=== PATIENT | female | born 1980 | race Caucasian/White ===

== ENCOUNTER 2021-01-28 16:26 | Emergency (ER) | payer OTHER ==
[~2021-01-28 16:26] MED LIST: AUGMENTIN 875-1 EACH PO; CIPRO500 MG PO; CLINDAMYCIN HC300 MG PO; IBUPROFEN600 MG PO; KEFLEX CAP 500500 MG PO
[2021-01-28 17:31] LABS: HEMOGLOBIN 10.9 gm/dl (12.3-15.3); RED BLOOD COUNT 4.02 M/UL (4.00-5.10); WHITE BLOOD COUNT 7.9 K/UL (4.5-11.0)
[2021-01-28 17:41] LABS: BUN/CREATININE RATIO 9 (0-10)
[2021-01-28] MEDS ORDERED: PROVERA 10 MG T10 MG PO (18:15)
== END 2021-01-28 18:35 | disposition home or self-care (01) ==
LOC: ER1 16:26
PROVIDERS: Nurse Practitioner
DX: N92.0 Excessive and frequent menstruation with regular cycle (principal); F17.210 Nicotine dependence, cigarettes, uncomplicated; Z90.49 Acquired absence of other specified parts of digestive tract
CPT/HCPCS: 80053; 81001; 84146; 84439; 84443; 84703; 85025; 86850; 86900; 86901; 99284; J7030